=== PATIENT | female | born 2000 ===

== ENCOUNTER 2020-01-18 19:30 | Inpatient (IN) | payer OTHER ==
[~2020-01-18 19:30] MED LIST: Ondansetron PF 4 MG/2 ML Vial IVP PRN; Promethazine HCl 25 MG/ML VIAL IM PRN; hydrALAZINE 20 MG/ML VIAL SLOW IVP PRN
[2020-01-18] MEDS ORDERED: Ibuprofen 800 MG TAB PO PRN (19:44)
[2020-01-18] MEDS ORDERED: Misoprostol 200 MCG TAB PR PRN (19:44)
[2020-01-18] MEDS ORDERED: Lidocaine 1% (PF) 30 ML VIAL SC PRN (19:44)
[2020-01-18] MEDS ORDERED: Carboprost 250 MCG/ML AMP IM PRN (19:44)
[2020-01-18] MEDS ORDERED: NS / Oxytocin 40 units/1000ml 1,000 ML IV PRN (19:44)
--- NOTE | 2020-01-18 20:29 | PDOC.FPROB ---
FMR OB H&P: HPI - History of Present Illness Chief Complaint: IOL 2/2 cHTN Indentification: 19 yo @ 38.2 wks History of Present Illness: Pt is a 19 yo @ 38.2 wks by 19.2 wk US who presents for eIOL for cHTN in . She endorses good movement. She denies loss of fluid, vaginal bleeding, and vaginal discharge. She says she has some spotting but has not had any lately. She complains of GERD and takes famotidine. She also was diagnosed with anemia in and takes iron. Primary Care Physician: GABRIELE Plunkett/Román Singh FMR OB H&P: Current - Care : 1 Para: 0 Gestational age: 38.2 wks Due date: 01/30/2020 Dating Criteria: 19.2 wk US - OB Labs Blood type: A RH: negative Antibody Screen: negative HIV: negative RPR: negative HepBsAg: negative Rubella: immune Quad screen: negative Urine drug screen: negative Gonorrhea: negative Chlamydia: negative 1 hour gtt: 151 3 hour GTT: fasting 108, 1hr 163, 2hr 126, 3hr 96 GBS: negative H&H: 10.1/32.5 Platelets: 288 Additional labs: Pr/cr ratio- .115 Uric Acid- 4.2 Cr .67 AST/ALT- 22/17 TSH 3.370 - Anatomy Survey Anatomy survey: 19.2 week sono dating sono. MAYELA updated by this sono FMR OB H&P: History - Past Medical History PMH: cHTN, Rh negative, Anemia of , Glucose intolerance, ADHD, GERD, hypothyroidism - OB History OB History: 1st - Surgical History Sx History: bilateral bunionectomy - Social History Social History: Denies any smoking, drinking or illicit drug use - Family History Family History: Mother- Melissa thyroiditis FMR OB H&P: Medications - Current Home Medications: Medication Instructions Recorded Confirmed Type Famotidine 40 mg PO DAILY 01/18/20 01/18/20 History Pnv No.95/Ferrous Fum/Folic AC 1 tab PO DAILY 01/18/20 01/18/20 History [ Caplet] pyridOXINE [Vitamin B 6] 0.5 mg PO DAILY 01/18/20 01/18/20 History Ferrous Sulfate [Iron] 325 mg PO DAILY 01/19/20 01/19/20 History Levothyroxine Sodium [Synthroid] 1 tab PO DAILY 01/19/20 01/19/20 History Allergies/Adverse Reactions: Allergies Allergy/AdvReac Type Severity Reaction Status Date / Time Penicillins Allergy Intermediate Hives Verified 01/18/20 20:32 Latex, Natural Rubber Allergy Mild Rash Verified 01/18/20 20:32 FMR OB H&P: ROS - Review of Systems General: denies: fever/chills Eyes: denies: vision changes ENT: denies: nasal congestion, rhinorrhea Cardiovascular: reports: edema. denies: chest pain, palpitation Respiratory: denies: cough, congestion, shortness of breath Gastrointestinal: denies: abdominal pain, cramping, nausea, vomiting, diarrhea, constipation Genitourinary (Female): reports: vaginal bleeding, contractions. denies: vaginal discharge, vaginal pain Musculoskeletal: denies: pain, tenderness Neurologic: denies: numbness, weakness Integumentary: denies: itching, rash Hematologic/Lymphatic: denies: prolonged or excessive bleeding, enlarged lymph nodes FMR OB H&P: Vital Signs - Heart Tones Baseline: 120 Variability: moderate Acceleration: present Deceleration: absent Category: category 1 [place] contractions every: 3-4 minutes FMR OB H&P: Physical Exam - Physical Exam General: NAD, awake, alert and oriented HEENT: normocephalic and atraumatic, EOMI, MMM, conjunctiva clear, no scleral icterus, normal nasal mucosa, oropharynx clear Neck: supple, no LAD Heart: RRR, normal S1/S2, no murmurs/rubs/gallops, pulses present Deviation from normal: 1+ pitting edema General: CTAB, no respiratory distress, good air movement, no rales/rhonchi, no wheezing Abdomen: soft, gravid, bowel sound present Musculoskeletal: normal gait and station Neurological: cranial nerves II through XII intact, no focal deficit Skin: no rash, good tugor Lymphatic: no unusual bruising or bleeding, no purpura Psychiatric: normal mood and affect - Pelvic Exam Vulva: normal hair distribution, appropriate yo stage, no masses, no lesions , no discharge, no blood SVE: 50/-3 [place] score: 4 FMR OB H&P: A/P - Problem List (1) Current Visit: Yes Status: Acute (2) Chronic hypertension Current Visit: Yes Status: Acute Code(s): I10 - ESSENTIAL (PRIMARY) HYPERTENSION (3) Hypothyroidism Current Visit: Yes Status: Acute Code(s): E03.9 - HYPOTHYROIDISM, UNSPECIFIED (4) Anemia Current Visit: Yes Status: Acute Code(s): D64.9 - ANEMIA, UNSPECIFIED (5) GERD (gastroesophageal reflux disease) Current Visit: Yes Status: Acute Code(s): K21.9 - GASTRO-ESOPHAGEAL REFLUX DISEASE WITHOUT ESOPHAGITIS Disposition: Pt is a 19 yo @ 38.2 wks by 19.2 wk US who presents for eIOL for cHTN in . 1. eIOL for cHTN 38.2 wks by 19.2 wk US * GBS: Neg * SVE * /-3, [place] 4, Cytotec * Would like Epidural * Continue PNV 2. Hypothyroidism Continue home meds: Levothyroxine 3. Anemia of Continue home meds: Iron 4. GERD Continue home meds: Famotidine Dispo: Admit and induce for labor with cytotec initially. Discussion: Date/Time: 01/18/202023 This H&P was discussed with [] and [] who agree with the above documentation and plan. Addendum - Attending - Attending Attestation Date/Time: 01/18/202210 I personally evaluated the patient and discussed the management with Dr. Jayde Anderson I agree with the History, Examination, Assessment and Plan documented above with any addition or exceptions noted below - 19 yo @38.2 weeks here for induction due to cHTN; not on any medications. Denies any ctx, LOF, VB (+) FM. Afebrile VSS SVE /-3/post/soft. Category 1 FHTs. [place]- irritability. A/P: 1 ) IUP@ 38.2 weeks with cHTN and hypothyroidism - Admit to L&D. Cytotec for cervical ripening. Recheck in 3-4 hours.
[2020-01-18 20:38] VITALS: BMI 34.6
[2020-01-18 21:20] LABS: ALT (SGPT) 7 U/L (8-55); AST (SGOT) 22 U/L (5-34); Alkaline Phosphatase 232 U/L (40-110); Anion Gap 15 mmol/L (10-20); BUN (Urea Nitrogen) 15 mg/dL (7.0-18.7); Bilirubin, Total 0.3 mg/dL (0.2-1.2); Calc. Creatinine Clearance 176 mL/min (70-130); Calcium 8.8 mg/dL (7.8-10.44); Carbon Dioxide 16 mmol/L (22-29); Chloride 112 mmol/L (98-107); Estimated GFR-MDRD Greater than 90; Globulin 2.6 g/dL (2.4-3.5); Glucose 73 mg/dL (70-105); Potassium 4.7 mmol/L (3.5-5.1); Protein, Total 5.6 g/dL (6.0-8.3); Sodium 138 mmol/L (136-145)
[2020-01-18 21:21] LABS: #Eosinphils 0.1 thou/uL (0.0-0.7); #Monocytes 0.9 thou/uL (0.11-0.59); #Neutrophils 12.6 thou/uL (1.40-6.50); %Basophils 0.3 % (0.0-1.0); %Eosinophils 0.3 % (0.0-10.0); %Lymphocytes 12.6 % (21.0-51.0); %Monocytes 5.7 % (0.0-10.0); %Neutrophils 81.1 % (42.0-75.0); Hemoglobin 10.1 g/dL (12.0-16.0); MDiff Complete? YES; Mean Corpuscular HGB CONC 32.6 g/dL (32.0-36.0); Mean Corpuscular Hemoglobin 23.9 pg (27.0-31.0); Mean Corpuscular Volume 73.3 fL (78.0-98.0); Mean Platelet Volume 9.9 fL (7.4-10.4); Microcytosis SLIGHT = 6-15 cells (100X) (0-5/hpf); Platelet Count 272 thou/uL (130-400); Platelet Morphology Comment Appears Adequate; RBC Distribution Width 15.8 % (11.5-14.5); Red Blood Cell (RBC) Count 4.25 mill/uL (4.20-5.40); White Blood Cell (WBC) Count 15.6 thou/uL (4.8-10.8)
[2020-01-18] MEDS: Lactated Ringer's 1,000 ML IV SCH (21:27)
[2020-01-18] MEDS: Misoprostol 100 MCG TAB VAG SCH (21:27)
[2020-01-18 21:37] LABS: Syphilis Antibody Nonreactive (Nonreactive); Syphilis Antibody Index 0.03 S/CO (<1.00 Non-Reactive)
[2020-01-18 23:07] LABS: HBSAg Index 0.15 S/CO (0-0.99); Hep B Surf Ag Non-Reactive S/CO (NonReactive)
[2020-01-18] MEDS ORDERED: Famotidine/PF 20 mg/2ml Vial SLOW IVP SCH (23:30)
--- NOTE | 2020-01-19 00:35 | PDOC.LDPN ---
Labor & Delivery Progress Note - Subjective Subjective: other (back pressure) - Objective Vital signs reviewed and normal: yes General: NAD, resting Uterine fundus: tender to palpation SVE: 1.5/75/-3 Dilation: 1.5 Effacement: 75% Station: -3 FHT: category 1 [place] contractions every: 3-4 minutes Plan: continue plan of care -: Pt is a 19 yo @ 38.2 wks by 19.2 wk US who presents for eIOL for cHTN in . 1. eIOL for cHTN 38.2 wks by 19.2 wk US * GBS: Neg * SVE * 01/17 2030: 1/50/-3, [place] 4, Cytotec * 01/18 0000: 1.5/75/-3, Cytotec * Would like Epidural * Continue PNV 2. Hypothyroidism Continue home meds: Levothyroxine 3. Anemia of Continue home meds: Iron 4. GERD Continue home meds: Famotidine Dispo: Continue current plan of care.
[2020-01-19] MEDS ORDERED: Butorphanol Tartrate 1 MG/ML VIAL SLOW IVP PRN (02:40)
[2020-01-19] MEDS ORDERED: hydrALAZINE 20 MG/ML VIAL SLOW IVP PRN ×2 (02:40→15:27)
[2020-01-19] MEDS ORDERED: Butorphanol Tartrate 1 MG/ML VIAL ONE (02:51)
--- NOTE | 2020-01-19 04:27 | PDOC.LDPN ---
Labor & Delivery Progress Note - Subjective Subjective: comfortable - Objective Vital signs reviewed and normal: yes General: NAD, resting Uterine fundus: non tender SVE: 75/-3 Dilation: 3 Effacement: 75% Station: -3 FHT: category 1 [place] contractions every: 1-2 minutes - Assessment (1) Current Visit: Yes Status: Acute (2) Chronic hypertension Code(s): I10 - ESSENTIAL (PRIMARY) HYPERTENSION Current Visit: Yes Status: Acute (3) Hypothyroidism Code(s): E03.9 - HYPOTHYROIDISM, UNSPECIFIED Current Visit: Yes Status: Acute (4) Anemia Code(s): D64.9 - ANEMIA, UNSPECIFIED Current Visit: Yes Status: Acute (5) GERD (gastroesophageal reflux disease) Code(s): K21.9 - GASTRO-ESOPHAGEAL REFLUX DISEASE WITHOUT ESOPHAGITIS Current Visit: Yes Status: Acute Plan: continue plan of care -: Pt is a 19 yo @ 38.2 wks by 19.2 wk US who presents for eIOL for cHTN in . 1. eIOL for cHTN 38.2 wks by 19.2 wk US * GBS: Neg * SVE * 01/17 2030: 150/-3, [place] 4, Cytotec * 01/18 0000: 1.5/75/-3, Cytotec held due to repeated contractions * 01/18 0400: 75/-3, given stadol an hour prior * Would like Epidural * Continue PNV * VSS stable * HR: 130s, mod variability, accels present * Contractions 1-2 min 2. Hypothyroidism Continue home meds: Levothyroxine 3. Anemia of Continue home meds: Iron 4. GERD Continue home meds: Famotidine Dispo: Will hold cytotec for now since she is omer well and making change. Recheck in 4 hours.
[2020-01-19] MEDS ORDERED: Fentanyl 4 mcg/Bup 0.1% Cadd 100 ML ONE (05:04)
[2020-01-19] MEDS ORDERED: Lidocaine 2% 10 ML INJ ONE (05:29)
[2020-01-19] MEDS ORDERED: diphenhydrAMINE 50 MG/ML VIAL IVP PRN (05:44)
[2020-01-19] MEDS ORDERED: Promethazine HCl 25 MG/ML VIAL IM PRN (05:44)
[2020-01-19] MEDS ORDERED: Ondansetron PF 4 MG/2 ML Vial IVP PRN ×2 (05:44→15:27)
[2020-01-19] MEDS ORDERED: Lactated Ringer's 500 ML IV PRN (05:44)
[2020-01-19] MEDS ORDERED: Naloxone HCl 0.4 mg/ml Vial IVP PRN ×2 (05:44)
[2020-01-19] MEDS ORDERED: EPHEDRINE 25 MG/5 ML SYRINGE SLOW IVP PRN (05:44)
[2020-01-19] MEDS ORDERED: Fentanyl 4 mcg/Bupivacaine 0.1% Cassette 100 ML EPIDURAL SCH (05:45)
[2020-01-19] MEDS ORDERED: Communication Order-Pharmacy FS SCH (05:45)
[2020-01-19] MEDS ORDERED: Levothyroxine Sodium 50 MCG TAB PO SCH (06:00)
--- NOTE | 2020-01-19 06:05 | PDOC.LDPN ---
Labor & Delivery Progress Note - Subjective Subjective: comfortable - Objective Vital signs reviewed and normal: yes General: NAD, resting Uterine fundus: non tender SVE: 4.5/80-3 Dilation: 4.5 Effacement: 75% Station: -3 FHT: category 1 [employer] contractions every: 1-2 minutes - Assessment (1) Current Visit: Yes Status: Acute (2) Chronic hypertension Code(s): I10 - ESSENTIAL (PRIMARY) HYPERTENSION Current Visit: Yes Status: Acute (3) Hypothyroidism Code(s): E03.9 - HYPOTHYROIDISM, UNSPECIFIED Current Visit: Yes Status: Acute (4) Anemia Code(s): D64.9 - ANEMIA, UNSPECIFIED Current Visit: Yes Status: Acute (5) GERD (gastroesophageal reflux disease) Code(s): K21.9 - GASTRO-ESOPHAGEAL REFLUX DISEASE WITHOUT ESOPHAGITIS Current Visit: Yes Status: Acute Plan: continue plan of care -: Pt is a 19 yo @ 38.2 wks by 19.2 wk US who presents for eIOL for cHTN in . 1. eIOL for cHTN 38.2 wks by 19.2 wk US * GBS: Neg * SVE * 01/17 2030: 1/50/-3, [place] 4, Cytotec * 01/18 0000: 1.5/75/-3, Cytotec held due to repeated contractions * 01/18 0400: 3/75/-3, given stadol an hour prior * 01/18 0600: 4.5/80/-3, epidural, SROM with clear fluid * Would like Epidural * Continue PNV * VSS stable * HR: 130s, mod variability, accels present * Contractions 1-2 min 2. Hypothyroidism Continue home meds: Levothyroxine 3. Anemia of Continue home meds: Iron 4. GERD Continue home meds: Famotidine Dispo: Recheck in 4 hours. Consider Pitocin if contractions space out.
--- NOTE | 2020-01-19 07:15 | PDOC.BPN ---
- Brief Progress Note Received check out from Dr. Jayde Anderson. Ann is a 19 y/o @ 38.3 wks admitted for medical induction 2/2 cHTN in . Vitals reviewed, BP sys high overnight 156. Ordered Urine pro/cr. will f/u with results. BP wnl at this time. Nurse notified to communicate any abnormal vitals. FHT strip reviewed. Cat 1 strip overnight. baseline 120 with mod variability, accels present. No decels. Currently ctx Q1-3 min. PT received epidural @ approx 6 AM. Pt then SROM. SVE @ 06:39 by Nurse: /-2. Plan to recheck in 3-4 hours. Pt resting comfortably.
[2020-01-19] MEDS ORDERED: Methylergonovine 0.2 MG/ML VIAL ONE (08:18)
[2020-01-19] MEDS ORDERED: NS / Oxytocin 40 units/1000ml 1,000 ML ONE (08:18)
[2020-01-19 08:49] LABS: Creatinine, Urine 115.04 mg/dL (47-110)
--- NOTE | 2020-01-19 08:58 | PDOC.LDPN ---
Labor & Delivery Progress Note - Subjective Subjective: comfortable - Objective Abnormal vital signs: BP elevated, no severe range. General: NAD, resting Uterine fundus: non tender SVE: 9/100/0 Dilation: 9 Effacement: 100% Station: 0 FHT: category 1 (125 baseline, mod variability, no decels, accels present ) [place] contractions every: 1-2 min Plan: continue plan of care -: Pt is a 19 yo @ 38.3 wks by 19.2 wk US who presents for eIOL for cHTN in . 1. eIOL for cHTN 38.3 wks by 19.2 wk US * GBS: Neg * SVE * 01/17 2030: 1/50/-3, [place] 4, Cytotec * 01/18 0000: 1.5/75/-3, Cytotec held due to repeated contractions * 01/18 0400: 3/75/-3, given stadol an hour prior * 01/18 0600: 4.5/80/-3, epidural, SROM with clear fluid * 01/18 0850: 9/100/0, comfortable with epidural. * VSS stable, BP have been elevated, but no severe range. UA pro/cr 0.33. Moving forward with . * Cat 1 strip: 125s, mod variability, accels present, no decels. * Contractions 1-2 min 2. Hypothyroidism Continue home meds: Levothyroxine 3. Anemia of Continue home meds: Iron 4. GERD Continue home meds: Famotidine Discussed with Dr. Barros who is in agreement with above plan.
[2020-01-19] MEDS ORDERED: Ferrous Sulfate 325 MG TAB PO SCH (09:00)
[2020-01-19] MEDS ORDERED: Famotidine 20 MG TAB PO SCH (09:00)
[2020-01-19] MEDS ORDERED: Prenatal Vitamin 1 TAB PO SCH (09:00)
[2020-01-19] MEDS ORDERED: Famotidine/PF 20 mg/2ml Vial SLOW IVP SCH (09:00)
[2020-01-19] MEDS ORDERED: pyridOXINE 50 MG (B6) TAB PO SCH (09:00)
[2020-01-19] MEDS ORDERED: Lidocaine 1% (PF) 30 ML VIAL ONE (11:53)
[2020-01-19] MEDS ORDERED: CEFAZOLIN 1 GM VIAL SLOW IVP SCH (12:45)
--- NOTE | 2020-01-19 12:45 | PDOC.OPDEL ---
OB Operative/Delivery Note - Additional Findings/Plan Compilations/Other Findings: Vaginal Delivery Procedure note Delivering Physician: Samantha Crain Attending: Dr. Barros Procedure: Spontaneous Vaginal Delivery Anesthesia: epidural EBL: 350 ml Pre-op Diagnosis: 1. Term intrauterine in labor 2. Chronic Hypertension 3. Anemia of 4. Hypothyroidism Post-op Diagnosis: 1. Term intrauterine , delivered 2. same as above 3. Grade IIIb OASIS injury Indications: A 19y/o female presented for induction 2/2 chronic hypertension Delivery Note: This is 19yo F @ 38.3wks who delivered a viable M at 1134. Following an uneventful antepartum course, a vigorous male was delivered over an intact perineum in the OA position. Anterior Shoulder and then remainder of the body delivered. No nuchal cord. The head was held down and mouth and nares were bulb suctioned. Cord clamped and cut and cord blood collected. Placenta delivered intact [place] presentation with a 3 vessel cord noted. Fundal massage was performed and the fundus was firm. The cervix and vagina were inspected and to have grade IIIb OASIS, >50% EAS tear, IAS intact. Attention was first turned to EAS, this was repaired with 3 throws of 2-0 vicryl in a running fashion and then 2 horizontal mattress throws. Following this the EAS was found to be well approximated. Rectal exam showed mucosa intact and good support. Attention was then turned to the 2nd degree perineal laceration, this was repaired in the usual fashion using 2-0 chromic. Hemstasis was appreciated. The did well, the Apgars were _8/9 at 1 & 5 minutes, respectively. was transferred to nursery in good condition. Patient tolerated delivery well and went to after routine recovery/care. Patient was counseled on possibility of fecal incontinence. 600mg IV clindamycin was ordered for prophylaxis from OASIS. Stool softeners were scheduled and patient was instructed on techniques to prevent constipation.
[2020-01-19] MEDS ORDERED: Clindamycin/D5W 600 MG in Premix Bag 1 BAG IVPB SCH (13:00)
[2020-01-19] MEDS: Misoprostol 100 MCG TAB VAG SCH ×3 (13:41→16:14)
[2020-01-19] MEDS: Lactated Ringer's 1,000 ML IV SCH ×2 (13:42→16:14)
[2020-01-19] MEDS ORDERED: Bisacodyl 10 MG SUPP PR PRN (15:27)
[2020-01-19] MEDS ORDERED: Benzocaine-Menthol 82.5 ML CAN TOP PRN (15:27)
[2020-01-19] MEDS ORDERED: Adacel (T-DAP) 0.5 ML SYRINGE IM ONE (15:27)
[2020-01-19] MEDS ORDERED: NS / Oxytocin 40 units/1000ml 1,000 ML IV SCH (15:27)
[2020-01-19] MEDS ORDERED: Lanolin Ointment 7 GM TUBE TOP PRN (15:27)
[2020-01-19] MEDS ORDERED: Preparation H Ointment 28 GM TUBE PR PRN (15:27)
[2020-01-19] MEDS: Ibuprofen 800 MG TAB PO SCH ×2 (16:12→20:56)
[2020-01-19] MEDS: Ferrous Sulfate 325 MG TAB PO SCH (19:16)
[2020-01-19] MEDS: Docusate Calcium (SURFAK) 240 MG CAP PO SCH ×2 (20:56→23:44)
[2020-01-20] MEDS: Acetaminophen 325 MG TAB PO PRN ×2 (03:21→09:01)
[2020-01-20] MEDS ORDERED: Calcium Carbonate 500 MG ChewTAB PO PRN (04:09)
[2020-01-20] MEDS: Ibuprofen 800 MG TAB PO SCH ×3 (06:01→22:05)
[2020-01-20 06:49] LABS: Hemoglobin 8.3 g/dL (12.0-16.0)
--- NOTE | 2020-01-20 07:35 | PDOC.PP ---
Post Progress Note Post Day #: 1 Subjective: Patient states she slept well. Complains of on an off back pain. States her bleeding is less than a regular menses. States she had a bowel movement yesterday without difficulty. She is pumping and getting the hang of . PO intake tolerated: yes Flatus: yes Ambulation: yes Vital Signs (12 hours) Temp Pulse Resp BP 01/20/20 04:30 97.8 F 69 19 127/70 01/20/20 00:25 98.0 F 68 18 125/60 01/19/20 21:00 98.5 F 77 19 137/77 Weight Weight 100.244 kg - Physical Examination General: NAD Cardiovascular: no m/r/g, RRR Respiratory: clear to auscultation bilaterally, non-labored breathing Abdominal: + bowel sounds, no distention, appropriately TTP Extremities: negative homans (B) Skin: no rash Neurological: no gross focal deficits Psychiatric: A&Ox3, normal affect Result Diagrams: 01/20/20 06:23 01/18/20 20:49 Additional Labs: Post Labs Blood Type A NEGATIVE 01/18/20 22:22 Hep Bs Antigen Non-Reactive S/CO (NonReactive) 01/18/20 20:49 (1) care and examination Code(s): Z39.2 - ENCOUNTER FOR ROUTINE FOLLOW-UP Status: Acute - Assessment/Plan Pt is a 19 yo who delivered by 38.3 wks, PP day 1 1) PP day 1 - consulted - scant bleeding - pain well controlled currently 2) cHTN - BPs within normal limits overnight 3) Hypothyroidism - decrease levothyroxine dose by 50%, repeat TSH at 6 wk visit 4) Anemia of - hgb 10.1-> 8.3 - will re-check hgb tomorrow, hold off iron for now 2/2 risk for constipation 5) OASIS, IIIb - patient had BM yesterday, denies pain, difficulty, or blood in stool - on docusate and miralax scheduled - s/p 1 time clindamycin ppx - counseled on high fiber diet and staying hydrated control: progestin
[2020-01-20] MEDS: Lidocaine 5% Patch TD SCH (09:00)
[2020-01-20] MEDS: Polyethylene Glycol 3350 17 GM Packet PO SCH (09:01)
[2020-01-20] MEDS: Prenatal Vitamin 1 TAB PO SCH (09:01)
[2020-01-20] MEDS: Docusate Calcium (SURFAK) 240 MG CAP PO SCH ×4 (09:01→22:05)
[2020-01-20] MEDS: Milk Of Magnesia 30 ML UDCUP PO PRN (09:05)
[2020-01-20] MEDS: Ferrous Sulfate 325 MG TAB PO SCH ×2 (10:25→17:36)
[2020-01-20] MEDS ORDERED: Acetaminophen 325 MG TAB PO PRN (10:44)
[2020-01-20] MEDS ORDERED: HYDROcodone/Acetaminophen 5/325 mg Tablet PO SCH (10:45)
[2020-01-20] MEDS ORDERED: Lidocaine Patch Removal 1 EACH TOP SCH (21:00)
[2020-01-21] MEDS ORDERED: HYDROcodone/Acetaminophen 5/325 mg Tablet PO SCH (03:30)
[2020-01-21] MEDS ORDERED: Levothyroxine Sodium 25 MCG TAB PO SCH (06:00)
[2020-01-21] MEDS: Ibuprofen 800 MG TAB PO SCH (06:12)
[2020-01-21 08:21] LABS: Hemoglobin 7.7 g/dL (12.0-16.0)
--- NOTE | 2020-01-21 08:33 | PDOC.PP ---
Post Progress Note Post Day #: 2 Subjective: complaints of some urinary incontinence when getting up to go to the bathroom, non- painful. Complains of MSK pelvic and back pain. PO intake tolerated: yes Flatus: yes Ambulation: yes Weight Weight 100.244 kg - Physical Examination General: NAD Cardiovascular: no m/r/g, RRR Respiratory: clear to auscultation bilaterally, non-labored breathing Abdominal: no distention, appropriately TTP Neurological: no gross focal deficits Psychiatric: A&Ox3, normal affect Result Diagrams: 01/21/20 08:02 01/18/20 20:49 Additional Labs: Post Labs Blood Type A NEGATIVE 01/18/20 22:22 Hep Bs Antigen Non-Reactive S/CO (NonReactive) 01/18/20 20:49 (1) Anemia Code(s): D64.9 - ANEMIA, UNSPECIFIED Status: Acute (2) Chronic hypertension Code(s): I10 - ESSENTIAL (PRIMARY) HYPERTENSION Status: Acute (3) GERD (gastroesophageal reflux disease) Code(s): K21.9 - GASTRO-ESOPHAGEAL REFLUX DISEASE WITHOUT ESOPHAGITIS Status: Acute (4) Hypothyroidism Code(s): E03.9 - HYPOTHYROIDISM, UNSPECIFIED Status: Acute (5) care and examination Code(s): Z39.2 - ENCOUNTER FOR ROUTINE FOLLOW-UP Status: Acute (6) Status: Acute - Assessment/Plan Pt is a 19 yo who delivered by 38.3 wks, PP day 2 1) PP day 2 - consulted - scant bleeding - pain well controlled currently - having some MSK pain, will plan to DC today after h/h with acetaminophen and ibuprofen 2) cHTN - BPs within normal limits overnight x2 3) Hypothyroidism - decrease levothyroxine dose by 50%, repeat TSH at 6 wk visit 4) Anemia of - hgb 10.1-> 8.3 - will re-check hgb this AM hold off iron for now 2/2 risk for constipation. Plan to start PO iron on discharge 5) OASIS, IIIb - no BM yet but passing gas, denies pain, difficulty - on docusate and miralax scheduled - s/p 1 time clindamycin ppx - counseled on high fiber diet and staying hydrated 6.) urinary incontinence - having some incontinence, no dysuria or fever. Discussed Kegel exercises and f /u outpt control: progestin
[2020-01-21 08:34] VITALS: BP 134/72; TEMP 98.8
[2020-01-21] MEDS: Lidocaine 5% Patch TD SCH (08:34)
[2020-01-21] MEDS: Ferrous Sulfate 325 MG TAB PO SCH (08:35)
[2020-01-21] MEDS: Docusate Calcium (SURFAK) 240 MG CAP PO SCH (08:35)
[2020-01-21] MEDS: Milk Of Magnesia 30 ML UDCUP PO PRN (08:36)
[2020-01-21] MEDS: Polyethylene Glycol 3350 17 GM Packet PO SCH (08:36)
[2020-01-21] MEDS: Prenatal Vitamin 1 TAB PO SCH (08:36)
== END 2020-01-21 13:25 | disposition home or self-care (01) | DRG 768 ==
LOC: L&D 19:47 → 3SE 01-19 15:09
PROVIDERS: ADMIT Emergency Medicine; ATTEND Emergency Medicine
PROC: 10E0XZZ Delivery of Products of Conception, External Approach (ICD-10-PCS; principal; 2020-01-19)
PROC: 0DQR0ZZ Repair Anal Sphincter, Open Approach (ICD-10-PCS; 2020-01-19)
PROC: 3E0P7VZ Introduction of Hormone into Female Reproductive, Via Natural or Artificial Opening (ICD-10-PCS; 2020-01-19)
DX: O10.92 Unspecified pre-existing hypertension complicating childbirth (principal); Z37.0 Single live birth; O70.22 Third degree perineal laceration during delivery, IIIb; Z3A.38 38 weeks gestation of pregnancy; K21.9 Gastro-esophageal reflux disease without esophagitis; O99.62 Diseases of the digestive system complicating childbirth; O99.284 Endocrine, nutritional and metabolic diseases complicating childbirth; O99.02 Anemia complicating childbirth; D64.9 Anemia, unspecified; E03.9 Hypothyroidism, unspecified; R32 Unspecified urinary incontinence; O99.89 Other specified diseases and conditions complicating pregnancy, childbirth and the puerperium
CPT/HCPCS: 36415; 51702; 80053; 82570; 84156; 85014; 85018; 85461; 86780; 86850; 86870; 86900; 86901; 87340; 90384; 96372; J0595; J2001; J2210; J2405; J3490

== ENCOUNTER 2020-01-22 07:21 | Emergency (ER) | payer OTHER ==
[2020-01-22] MEDS ORDERED: Ondansetron PF 4 MG/2 ML Vial ONE (07:44)
[2020-01-22] MEDS ORDERED: Ketorolac Tromethamine 30 MG/ML VIAL ONE (07:44)
[2020-01-22] MEDS ORDERED: Morphine 4 MG/ML VIAL ONE (07:44)
[2020-01-22] MEDS ORDERED: Magnevist 469MG/ML 20 ML VIAL ONE (10:56)
--- NOTE | 2020-01-22 11:08 | MRI ---
MRI LUMBAR SPINE WITH AND WITHOUT CONTRAST: Date: 01/22/2020 INDICATION: Low back pain with lower extremity numbness. Epidural 4 days ago for vaginal delivery. FINDINGS: The lumbar vertebra maintain normal height and alignment. The disc spaces are preserved. Degenerative disc signal changes are seen at L5-S1 with slight loss of height at this level. Mild disc bulge at L 5-S1 mildly flattens the anterior thecal sac. There is mild facet arthrosis at this level. No central canal or foraminal stenosis. No significant disc bulge or protrusion at the other levels. There is no evidence of epidural fluid o r hematoma. IMPRESSION: Unremarkable MRI lumbar spine. Mild degenerative disc signal changes at L5-S1 as described. No eviden ce of epidural hematoma or abscess. POS: AGW
== END 2020-01-22 11:26 | disposition home or self-care (01) ==
LOC: ERS 07:21
DX: M54.5 Low back pain (principal); I10 Essential (primary) hypertension; F90.9 Attention-deficit hyperactivity disorder, unspecified type; Z79.899 Other long term (current) drug therapy
CPT/HCPCS: 72158; 96374; A9579; J1885; J2270; J2405

== ENCOUNTER 2020-01-24 13:19 | Inpatient (IN) | payer OTHER ==
[2020-01-24] MEDS ORDERED: Calcium Gluconate 4.6 MEQ in Sodium Chloride 0.9% 100 ML IVPB PRN ×2 (13:41→15:38)
[2020-01-24] MEDS ORDERED: hydrALAZINE 20 MG/ML VIAL SLOW IVP PRN ×2 (13:42→16:17)
[2020-01-24] MEDS ORDERED: Magnesium Sulfate 20 gm/500 ml 20 GM/500 ML BAG IVPB SCH (13:45)
[2020-01-24] MEDS ORDERED: Magnesium Sulfate 20 GM/WATER 500 ML BAG IVPB SCH ×3 (13:45→16:15)
[2020-01-24 14:07] VITALS: BMI 36.8
--- NOTE | 2020-01-24 15:03 | PDOC.FPRHP ---
- History of Present Illness Chief Complaint: back pain and LE edema History of Present Illness: 19YO G1 now P1001 who is PP day #5 s/p a @ 38.3 WGA who presented per the recs of her PCP's clinic after presenting to clinic and being noted to have an elevated BP with associated LE edema. Per the patient she has not been feeling well since being discharged from the hospital. She reports persistent back pain with associated numbness and pain in her feet for which she went to the ER on Friday and had a normal MRI of her back. However, on Friday she started to have progressively worsening LE edema that she reports she present prior to discharge, just not as severe as it is today. Reports SOB and scotomatas on and off for the entire duration of her but endorses orthopnea and chest tightness yesterday morning. She reports she has not been able to care for her baby that well because she has been feeling so bad. She therefore decided to be seen in clinic today and reportedly had a BP of ~145 systolic. Per review of her intrapartum labs she had an elevated protein:cr ratio of 0.33 so this coupled with her elevated BP and symptoms prompted her being sent to L&D for further evaluation. - Allergies/Adverse Reactions Allergies Allergy/AdvReac Type Severity Reaction Status Date / Time Penicillins Allergy Intermediate Hives Verified 01/18/20 20:32 Latex, Natural Rubber Allergy Mild Rash Verified 01/18/20 20:32 - Home Medications Medication Instructions Recorded Confirmed Type Famotidine 40 mg PO DAILY 01/18/20 01/18/20 History Pnv No.95/Ferrous Fum/Folic AC 1 tab PO DAILY 01/18/20 01/18/20 History [ Caplet] Ferrous Sulfate [Iron] 325 mg PO DAILY 01/19/20 01/19/20 History Docusate Calcium [Surfak] 240 mg PO BID 14 Days #28 cap 01/20/20 Rx Ibuprofen [Motrin] 800 mg PO Q8HR 7 Days #21 tab 01/20/20 Rx Norethindrone 1 tablet PO DAILY 90 Days #90 pack 01/20/20 Rx Acetaminophen [Pain Relief] 1,000 mg PO Q8HR #21 tablet 01/21/20 Rx Levothyroxine Sodium [Synthroid] 25 mcg PO 0600 #60 tab 01/21/20 Rx - History PMHx: cHTN, hypothyroidism, obesity, anemia of , ADHD, GERD PSHx: B/L bunionectomy FHx: Mother- Melissa Social: Denies any smoking, drinking or illicit drug use - Review of Systems General: denies: fever/chills, fatigue Eyes: reports: vision changes. denies: eye pain ENT: denies: nasal congestion, rhinorrhea Respiratory: reports: shortness of breath. denies: cough Cardiovascular: reports: edema, orthopnea. denies: palpitation Gastrointestinal: denies: nausea, vomiting, diarrhea, constipation Genitourinary: reports: incontinence. denies: dysuria Skin: denies: rashes, lesions Musculoskeletal: reports: pain, swelling Neurological: reports: numbness. denies: weakness Psychological: reports: anxiety. denies: depression - Vital signs BP: 163/93 HR: 58 RR: 20 Tmax: 98.9F Pox: 99% on RA Wt: 106.5 kg - Physical Exam Constitutional: awake, alert and oriented, well developed HEENT: normocephalic and atraumatic, conjunctiva clear, no scleral icterus, grossly normal vision, grossly normal hearing, MMM Neck: supple, FROM Heart: RRR, normal S1/S2, no murmurs/rubs/gallops, other (nonpitting edema in B/ L LEs up to B/L knees) Lungs: CTAB, no respiratory distress, good air movement, no rales/rhonchi, no wheezing, no retractions Abdomen: soft, bowel sounds present Musculoskeletal: normal structure, ROM grossly normal Neurological: no focal deficit, CN II-XII intact, normal sensation, DTRs 2+ Skin: no rash/lesions, good turgor, no jaundice Heme/Lymphatic: no unusual bruising or bleeding, no purpura, no petechia Psychiatric: intact recent and remote memory, other (anxious affect but easily redirected & calmed) FMR H&P: Results - Labs Result Diagrams: 01/24/20 15:07 01/25/20 06:46 FMR H&P: A/P - Problem List (1) Pre-eclampsia, severe, delivered with condition Current Visit: Yes Status: Acute Code(s): O14.15 - SEVERE PRE-ECLAMPSIA, COMPLICATING THE PUERPERIUM (2) Anemia Current Visit: No Status: Chronic Code(s): D64.9 - ANEMIA, UNSPECIFIED (3) Chronic hypertension Current Visit: No Status: Chronic Code(s): I10 - ESSENTIAL (PRIMARY) HYPERTENSION (4) GERD (gastroesophageal reflux disease) Current Visit: No Status: Chronic Code(s): K21.9 - GASTRO-ESOPHAGEAL REFLUX DISEASE WITHOUT ESOPHAGITIS (5) Hypothyroidism Current Visit: No Status: Chronic Code(s): E03.9 - HYPOTHYROIDISM, UNSPECIFIED - Plan 19YO who is PP day #5 s/p @ 38.2 WGA who presented to L&D for evaluation for the development of PP pre-eclampsia. #Suspected pre-e with severe features with superimposed cHTN: - Patient's initial BP all in severe range ranging from SBP 150-180 and DBP 80- 94. All other vitals WNLs but given intrapartum elevated protein Creatinine ration and reported vision changes, SOB, and LE edema, will re-screen for pre-e w/ routine labs: CBC, CMP, protein creatinine ratio. However, given reports of orthopnea as well and intermittent chest pressure will obtain a BNP to screen for PPCM. If + will follow-up with an ECHO, EKG & troponin. - Will give 5mg IV hydralazine now for severe range pressures & start on Mg therapy as well given multiple severe range pressures. - Will admit for 24 hours Mg therapy & continue to monitor BPs closely. PRN hydralazine & labetalol IV for BP control. #hypothyroidism - Resume home meds #obesity - Will encourage weight loss #Anemia - Continue iron and PNVs #GERD - Resume home famotidine #cHTN - See above Dispo: Will admit to L&D ICU for PP Mg therapy & BP control & monitoring for suspected pre-e with severe features superimposed on cHTN. FMR H&P: Upper Level - Plan Date/Time: 01/24/20 1143 I, [], have evaluated this patient and agree with findings/plan as outlined by hospital internship resident. Pertinent changes/additions are listed here. Addendum - Attending - Attending Attestation Date/Time: 01/25/20 0714 I personally evaluated the patient and discussed the management with Dr. Cowan and Murray yesterday afternoon at time of admission. I agree with the History, Examination, Assessment and Plan documented above with any addition or exceptions noted below.
[2020-01-24] MEDS: Lactated Ringer's 1,000 ML IV SCH (15:13)
[2020-01-24] MEDS ORDERED: Labetalol HCl 100 MG/20 ML VIAL SLOW IVP SCH (15:15)
[2020-01-24 15:18] LABS: #Eosinphils 0.4 thou/uL (0.0-0.7); #Lymphocytes 1.7 thou/uL (1.20-3.40); #Monocytes 0.6 thou/uL (0.11-0.59); #Neutrophils 9.5 thou/uL (1.40-6.50); %Basophils 0.2 % (0.0-1.0); %Eosinophils 3.4 % (0.0-10.0); %Lymphocytes 13.8 % (21.0-51.0); %Monocytes 4.6 % (0.0-10.0); Mean Corpuscular HGB CONC 31.8 g/dL (32.0-36.0); Mean Corpuscular Hemoglobin 23.3 pg (27.0-31.0); Mean Corpuscular Volume 73.1 fL (78.0-98.0); Mean Platelet Volume 8.3 fL (7.4-10.4); Platelet Count 267 thou/uL (130-400); RBC Distribution Width 17.2 % (11.5-14.5); Red Blood Cell (RBC) Count 3.88 mill/uL (4.20-5.40); White Blood Cell (WBC) Count 12.2 thou/uL (4.8-10.8)
[2020-01-24 15:42] LABS: ALT (SGPT) 64 U/L (8-55); AST (SGOT) 53 U/L (5-34); Albumin 3.4 g/dL (3.5-5.0); Alkaline Phosphatase 175 U/L (40-110); Anion Gap 15 mmol/L (10-20); BUN (Urea Nitrogen) 21 mg/dL (7.0-18.7); Bilirubin, Total 0.2 mg/dL (0.2-1.2); Calc. Creatinine Clearance 148 mL/min (70-130); Calcium 8.5 mg/dL (7.8-10.44); Carbon Dioxide 21 mmol/L (22-29); Chloride 110 mmol/L (98-107); Estimated GFR-MDRD 69; Globulin 2.7 g/dL (2.4-3.5); Glucose 73 mg/dL (70-105); Potassium 4.7 mmol/L (3.5-5.1); Protein, Total 6.1 g/dL (6.0-8.3); Sodium 141 mmol/L (136-145)
[2020-01-24] MEDS: hydrALAZINE 20 MG/ML VIAL SLOW IVP PRN ×2 (16:05→17:24)
[2020-01-24] MEDS: Magnesium Sulfate 20 gm/500 ml 20 GM/500 ML BAG IVPB SCH (16:08)
[2020-01-24] MEDS ORDERED: Promethazine HCl 25 MG/ML VIAL IM PRN (16:17)
[2020-01-24] MEDS ORDERED: Ondansetron PF 4 MG/2 ML Vial IVP PRN (16:17)
[2020-01-24 17:13] LABS: Creatinine, Urine 47.52 mg/dL (47-110)
[2020-01-24] MEDS ORDERED: Labetalol HCl 100 MG/20 ML VIAL SLOW IVP PRN (19:00)
--- NOTE | 2020-01-24 20:00 | PDOC.BPN ---
<Jose A Singh - Last Filed: 01/24/20 19:58> - Brief Progress Note Mag check S: pt resting, GIL still present but improved. Denies SOB or abdominal pain. O: vitals: BP 146/67, HR 78. extremities: DTR's 2+ at B knees, no clonus U/O appropriate <Floyd Daniel - Last Filed: 01/24/20 22:26> Addendum - Attending - Attending Attestation Date/Time: 01/24/20 4546 I personally evaluated the patient and discussed the management with Dr. Singh and team. I agree with the History, Examination, Assessment and Plan documented above with any addition or exceptions noted below.
[2020-01-24] MEDS: Acetaminophen 500 MG TAB PO SCH (20:19)
[2020-01-24] MEDS ORDERED: Hydrochlorothiazide 25 MG TAB PO SCH (21:00)
[2020-01-24] MEDS: Labetalol 100 MG TAB PO SCH (22:42)
--- NOTE | 2020-01-24 23:43 | PDOC.BPN ---
- Brief Progress Note Mag check S: pt resting, GIL resolved. Denies SOB or abdominal pain. States her swelling feels better. O: vitals: BP 2 severe range pressures since 1900. Resolved on repeat. Received PO labetalol extremities: DTR's 2+ at knees, no clonus U/O >200ml/hr
[2020-01-25] MEDS: Magnesium Sulfate 20 gm/500 ml 20 GM/500 ML BAG IVPB SCH ×2 (00:05→09:38)
[2020-01-25] MEDS: Lactated Ringer's 1,000 ML IV SCH ×2 (03:00→16:19)
--- NOTE | 2020-01-25 04:21 | PDOC.BPN ---
- Brief Progress Note Mag check S: pt resting, GIL resolved. Denies SOB or abdominal pain. Patient is looking forward to getting off mag. O: vitals: BP no sev range since midnight extremities: DTR's 2+ at knees, no clonus U/O >200ml/hr A/P Labetalol CECILIA great U/O Awaiting Echo
[2020-01-25 07:11] LABS: ALT (SGPT) 52 U/L (8-55); AST (SGOT) 34 U/L (5-34); Albumin 3.2 g/dL (3.5-5.0); Alkaline Phosphatase 168 U/L (40-110); Anion Gap 16 mmol/L (10-20); BUN (Urea Nitrogen) 15 mg/dL (7.0-18.7); Bilirubin, Total 0.2 mg/dL (0.2-1.2); Calc. Creatinine Clearance 172 mL/min (70-130); Calcium 7.6 mg/dL (7.8-10.44); Carbon Dioxide 19 mmol/L (22-29); Chloride 108 mmol/L (98-107); Estimated GFR-MDRD 82; Globulin 3.1 g/dL (2.4-3.5); Glucose 96 mg/dL (70-105); Potassium 4.4 mmol/L (3.5-5.1); Protein, Total 6.3 g/dL (6.0-8.3); Sodium 139 mmol/L (136-145)
[2020-01-25] MEDS: Acetaminophen 500 MG TAB PO SCH ×3 (07:11→22:01)
[2020-01-25] MEDS: Levothyroxine Sodium 25 MCG TAB PO SCH (07:12)
--- NOTE | 2020-01-25 07:58 | PDOC.FM ---
- Subjective Subjective: Pt states she is very frustrated with the magnesium therapy as it is causing her to feel "terrible." Denies GIL. Had headache yesterday evening treated with tylenol Denies RUQ abd pain. states swelling in her feet is much better than yesterday. Vitals reviewed from overnight. severe range @ 2323: 163/90. remaining pressures 130-140/60-70's since that time. Switched from HCTZ to Labetalol overnight for BP medications. - Objective MAR Reviewed: Yes Vital Signs & Weight: Vital Signs (12 hours) Pulse BP 01/24/20 22:42 100 147/62 H Weight Weight 106.594 kg I&O: Diuresing well Overnight nurse documented average of 200 ml/hr urine output overnight. Result Diagrams: 01/24/20 15:07 01/25/20 06:46 Additional Labs: AST 34 ALT 52 improved from yesterday to now normal ranges Phys Exam - Physical Examination Constitutional: NAD HEENT: sclera anicteric dry MM Neck: no JVD, supple, full ROM Respiratory: no wheezing, no rales, no rhonchi, clear to auscultation bilateral Cardiovascular: RRR, no significant murmur, no rub Gastrointestinal: soft, non-tender, no distention, positive bowel sounds Musculoskeletal: pulses present, edema present (@+ pitting edema of B feet, up to ankles, then trace above to B knees. ) Neurological: non-focal, moves all 4 limbs DTR's 2+ at B knee and biceps Psychiatric: normal affect, A&O x 3 Skin: no rash, normal turgor, cap refill <2 seconds Dx/Plan (1) Pre-eclampsia, severe, delivered with condition Code(s): O14.15 - SEVERE PRE-ECLAMPSIA, COMPLICATING THE PUERPERIUM Status: Acute (2) Chronic hypertension Code(s): I10 - ESSENTIAL (PRIMARY) HYPERTENSION Status: Chronic (3) GERD (gastroesophageal reflux disease) Code(s): K21.9 - GASTRO-ESOPHAGEAL REFLUX DISEASE WITHOUT ESOPHAGITIS Status: Chronic (4) Hypothyroidism Code(s): E03.9 - HYPOTHYROIDISM, UNSPECIFIED Status: Chronic - Plan Plan: 19YO who is PP day #6 s/p @ 38.2 WGA who presented to L&D for evaluation for the development of PP pre-eclampsia. #pre-e with severe features with superimposed cHTN: - Patient's initial BP all in severe range ranging from SBP 150-180 and DBP 80- 94. - Urine pro/cr ratio: 0.51 - AST 53-> 34, ALT 64-> 52 - On admission subjective reports of orthopnea as well and intermittent chest pressure: BNP 478. - ECHO ordered and not taken yet. To evaluate for PPCM - Started on Mag, will continue for 24 hours. - PRN hydralazine for severe range pressure - Initially started on PO HCTZ. Transitioned to PO labetalol 100 TID. - BP's overnight 130-140/60-70's overnight with a couple of 150. No severe range since 23:23 BP of 163/90. #hypothyroidism - Resume home meds #obesity - Will encourage weight loss #Anemia - Continue iron and PNVs - Minimal lochia #GERD - Resume home famotidine #cHTN - See above #PP day #6 - minimal lochia - encouraged to continue to breast pump. - continue PNV and iron. Dispo: Will admit to L&D ICU for PP Mg therapy & BP control & monitoring for pre -e with severe features superimposed on cHTN. Addendum - Attending - Attending Attestation Date/Time: 01/25/20 1111 I personally evaluated the patient and discussed the management with Dr. Cowan. I agree with the History, Examination, Assessment and Plan documented above with any addition or exceptions noted below. Marlenaanna is feelign better. Duiresis is brisk.
[2020-01-25] MEDS: Labetalol 100 MG TAB PO SCH ×3 (08:47→21:14)
[2020-01-25] MEDS: Ferrous Sulfate 325 MG TAB PO SCH (08:48)
[2020-01-25] MEDS: Famotidine 20 MG TAB PO SCH (09:38)
--- NOTE | 2020-01-25 13:23 | PDOC.BPN ---
- Brief Progress Note Mag check S: pt resting, Denies SOB, GIL, CP, visual changes or abdominal pain. O: vitals: BP no severe range since midnight. BP 147/81, HR 79 extremities: DTR's 2+ at knees and biceps. no clonus U/O 200/300/450/400 last 4 hours. A/P Labetalol CECILIA great U/O Awaiting Echo stable on Mag. d/c mag at 1600 today.
[2020-01-25] MEDS: Prenatal Vitamin 1 TAB PO SCH (16:05)
--- NOTE | 2020-01-25 16:28 | EKG ---
Test Reason : Blood Pressure : / mmHG Vent. Rate : 077 BPM Atrial Rate : 077 BPM P-R Int : 182 ms QRS Dur : 070 ms QT Int : 422 ms P-R-T Axes : 049 051 042 degrees QTc Int : 477 ms Normal sinus rhythm Prolonged QT Abnormal ECG No previous ECGs available Confirmed by ROCAEL MELTON ([id number]) on 01/25/2020 4:27:36 PM Referred By: BONNIE Confirmed By:ROCAEL MELTON
[2020-01-25] MEDS ORDERED: Bisacodyl 5 MG TAB PO PRN (21:22)
[2020-01-26] MEDS: Levothyroxine Sodium 25 MCG TAB PO SCH (06:28)
[2020-01-26] MEDS: Acetaminophen 500 MG TAB PO SCH (06:28)
--- NOTE | 2020-01-26 07:25 | PDOC.FM ---
- Subjective Subjective: Pt c/o RUE pain and swelling, she is concerned this is from her epidural from delivery causing the right sided problems. Pt states her LE swelling is much alleviated. Pt feels ready to go home. States she will be able to take Labetalol TID when she goes home and have close f/u with Dr. Plunkett at [facility]. - Objective MAR Reviewed: Yes Vital Signs & Weight: Vital Signs (12 hours) Temp Pulse Resp BP BP Pulse Ox 01/26/20 03:18 98.5 F 77 20 134/75 01/26/20 00:15 98.7 F 71 16 137/75 97 01/25/20 21:14 75 01/25/20 20:16 98.3 F 75 16 132/72 98 Weight Weight 106.594 kg Result Diagrams: 01/24/20 15:07 01/25/20 06:46 Phys Exam - Physical Examination Constitutional: NAD HEENT: moist MMs, sclera anicteric Neck: no nodes, no JVD, supple Respiratory: no wheezing, no rales, no rhonchi, clear to auscultation bilateral Cardiovascular: RRR, no significant murmur, no rub Gastrointestinal: soft, non-tender, no distention, positive bowel sounds Musculoskeletal: pulses present, edema present (trace pitting edema B feet. ) Neurological: non-focal, normal sensation, moves all 4 limbs no clonus. Psychiatric: normal affect, A&O x 3 Skin: no rash, normal turgor, cap refill <2 seconds Dx/Plan (1) Pre-eclampsia, severe, delivered with condition Code(s): O14.15 - SEVERE PRE-ECLAMPSIA, COMPLICATING THE PUERPERIUM Status: Acute (2) Chronic hypertension Code(s): I10 - ESSENTIAL (PRIMARY) HYPERTENSION Status: Chronic (3) GERD (gastroesophageal reflux disease) Code(s): K21.9 - GASTRO-ESOPHAGEAL REFLUX DISEASE WITHOUT ESOPHAGITIS Status: Chronic (4) Hypothyroidism Code(s): E03.9 - HYPOTHYROIDISM, UNSPECIFIED Status: Chronic - Plan Plan: 19YO who is PP day #7 s/p @ 38.2 WGA who presented to L&D for evaluation for the development of PP pre-eclampsia superimposed on cHTN. #cHTN with superimposed pre-e with severe features - Patient's initial BP all in severe range ranging from SBP 150-180 and DBP 80- 94. - Urine pro/cr ratio: 0.51 - AST 53-> 34, ALT 64-> 52 - On admission subjective reports of orthopnea as well and intermittent chest pressure: BNP 478. - ECHO: EF 60-65%, mild-mod MR, E/A flow reversal suggestive of diastolic dysfunction. - Started on Mag and received a total of 24 hours therapy. Off mag now. - PRN hydralazine for severe range pressure - Initially started on PO HCTZ. Transitioned to PO labetalol 100 TID. - BP's overnight 130's/70's #hypothyroidism - Resume home meds #obesity - Will encourage weight loss #Anemia - Continue iron and PNVs - Minimal lochia #GERD - Resume home famotidine #cHTN - See above #PP day #7 - minimal lochia - encouraged to continue to breast pump. - continue PNV and iron. Dispo: Stable, improved BP's, ECHO not suggestive of PPCM, plan D/c on PO BP meds and close follow up in outpt setting. Addendum - Attending - Attending Attestation Date/Time: 01/26/20 1232 I personally evaluated the patient and discussed the management with Dr. Cowan. I agree with the History, Examination, Assessment and Plan documented above with any addition or exceptions noted below.
[2020-01-26] MEDS: Prenatal Vitamin 1 TAB PO SCH (08:58)
[2020-01-26] MEDS: Labetalol 100 MG TAB PO SCH (09:00)
[2020-01-26] MEDS: Famotidine 20 MG TAB PO SCH (09:00)
[2020-01-26] MEDS: Ferrous Sulfate 325 MG TAB PO SCH (09:00)
--- NOTE | 2020-01-26 09:04 | PDOC.BPN ---
- Brief Progress Note On review of her echo: End diastolic dimension >2.7 @ 5.58. End Diastolic dimension >2.7 is a criteria for Post Cardiomyopathy Pt is diuresing well and not requiring any diuretics. Recommending f/u with cardiology outpt with repeat echo in 6 months.
[2020-01-26 12:02] VITALS: BP 135/74; TEMP 98.9
[2020-01-26] MEDS ORDERED: Hydrochlorothiazide 25 MG TAB PO SCH (21:00)
--- NOTE | 2020-01-27 11:04 | DIS ---
DATE OF ADMISSION: 01/24/2020 DATE OF DISCHARGE: 01/26/2020 RESIDENT: Swetha Cowan DO ADMITTING ATTENDING: Ryan Victoria MD DISCHARGE ATTENDING: Ryan Victoria MD CONSULTS: None. PROCEDURES PERFORMED: Echocardiogram which showed an EF of 60% to 65% with EA flow reversal suggestive of diastolic dysfunction a end diastolic dimension of 5.58, diagnostic of cardiomyopathy fractional shortening normal at 36.2% and normal EF of 60%. DIAGNOSES: 1. Chronic hypertension with superimposed preeclampsia in the period. 2. cardiomyopathy. 3. Hypothyroidism. 4. Obesity. 5. Anemia. 6. Gastroesophageal reflux disease. 7. via spontaneous vaginal delivery. DISCHARGE MEDICATIONS: 1. Hydrochlorothiazide 12.5 mg p.o. b.i.d. 2. Ibuprofen 800 mg p.o. q.8 hours p.r.n. for pain. 3. Famotidine 40 mg p.o. daily. 4. Docusate calcium 240 mg capsule p.o. b.i.d. 5. Ferrous sulfate 325 mg p.o. daily. 6. Synthroid 25 mcg p.o. daily with breakfast. 7. vitamin 1 capsule p.o. daily. DISCONTINUED MEDICATIONS: Labetalol 100 mg p.o. t.i.d. HISTORY OF PRESENT ILLNESS/HOSPITAL COURSE: Ms. Juarez is a 19-year-old, G1, P1, day 7 that was admitted to Labor and Delivery after having severe range pressures on day #5 in the clinic. The patient was admitted with pressures above 160/110 and started on magnesium for 24 hours, as well as p.o. hydrochlorothiazide 25 mg p.o. b.i.d. The patient's blood pressures were initially well maintained, but overnight began to worsen. She was switched to p.o. labetalol 100 mg p.o. t.i.d. by the night team and her blood pressures stabilized. After 24 hours of magnesium therapy, the patient was transferred over to the floor and had multiple normal blood pressures in the 130s over 70s. The patient had an echo which showed evidence of cardiomyopathy and it is our recommendation that she follow up with Cardiology in the outpatient setting and also receive a repeat echocardiogram in approximately six months. The patient's labs for this hospitalization was a urine protein creatinine ratio of 0.53, diagnostic of preeclampsia superimposed on her chronic hypertension. The patient did not have to take medications for her chronic hypertension throughout her course and at discharge, her blood pressures were at or slightly lower than what they were during her course. We want patient to follow up with Dr. Plunkett or Dr. Singh at [facility] in the next one week to confirm if we need to continue the medication that she is on or if patient needs more diuresis. She diuresed very well in the hospital not requiring any Lasix, putting out up to 450 mL an hour, averaging from 200 to 300 per hour, especially while on the magnesium. Her pitting edema was much improved on the day of discharge down to just her feet, which has decreased to her having 2+ edema all the way up to her knees. DISPOSITION: Stable upon discharge with stable blood pressures of a goal less than 150/90. DISCHARGE INSTRUCTIONS: 1. Location: Home. 2. Diet: Heart healthy diet with sodium no more than 2000 mg daily. 3. Activity: As tolerated. 4. Followup: Follow up with [facility] with Dr. Plunkett or Dr. Singh in 1 week to recheck blood pressure and re-evaluate blood pressure medication. The patient understands that close followup is necessary for her condition and was counseled on taking hydrochlorothiazide twice a day. Job ID: [id number]
== END 2020-01-26 13:00 | disposition home or self-care (01) | DRG 776 ==
LOC: L&D/OP 13:19 → L&D 16:19 → L&D-LIB 01-25 08:02 → 3SW 01-25 17:46
PROVIDERS: ADMIT Family Medicine; ATTEND Family Medicine
DX: O11.5 Pre-existing hypertension with pre-eclampsia, complicating the puerperium (principal); O10.93 Unspecified pre-existing hypertension complicating the puerperium; O99.285 Endocrine, nutritional and metabolic diseases complicating the puerperium; E03.9 Hypothyroidism, unspecified; O99.215 Obesity complicating the puerperium; E66.9 Obesity, unspecified; O90.81 Anemia of the puerperium; D64.9 Anemia, unspecified; K21.9 Gastro-esophageal reflux disease without esophagitis; O99.63 Diseases of the digestive system complicating the puerperium; R51 Headache; O90.89 Other complications of the puerperium, not elsewhere classified; O90.3 Peripartum cardiomyopathy; Z88.0 Allergy status to penicillin; Z91.040 Latex allergy status
CPT/HCPCS: 51702; 80053; 82570; 83735; 83880; 84156; 85025; 93005; 93010; 93306; 99285; J0360; J3475